=== PATIENT | female | born 1970 | race Caucasian/White ===

== ENCOUNTER 2020-02-29 06:13 | Day surgery (SDC) | payer OTHER, SELFPAY ==
[2020-02-29] VITALS (9 sets, daily range): BP systolic 131–152; BP diastolic 78–98; PULSE 73–87; RESP 16; TEMP 36.1–37.5; O2SAT 93–100; BMI 37.0
[2020-02-29 06:36] LABS: Bedside Glucose 87 mg/dL (70-110)
[2020-02-29] MEDS: Lactated Ringers 1,000 ML 100 ML IV ×2 (06:48→09:07)
[2020-02-29 06:58] LABS: Anion Gap 8 (5-15); BUN 11 mg/dL (7-18); BUN/Creat Ratio 13.4 RATIO (10-20); Calcium,Total 8.8 mg/dL (8.5-10.1); Chloride 103 mmol/L (98-107); Creatinine, Serum 0.82 mg/dL (0.55-1.02); EST Glomerular Filtration Rate 79 mL/min (>60); Est Glom Filt Rate - Afr Amer 95 mL/min (>60); Estimated Creatinine Clearance 78.54 ml/min; Glucose 88 mg/dL (74-106); Potassium 3.5 mmol/L (3.5-5.1); Sodium Level 139 mmol/L (136-145)
--- NOTE | 2020-02-29 07:27 | PCM.HP.STD ---
Problem List (1) Stress incontinence Status: Acute (2) Urethral hypermobility Status: Acute History of Present Illness Date of Admission: 02/29/20 Chief Complaint: incontinence The patient is a 49 year old F with significant stress urinary incontinence. She went through pelvic floor physical therapy with some improvement. She desired to then proceed with surgical intervention. She had urodynamics and cystoscopy in the office. Informed consent was obtained. We discussed risks of anesthesia, infection, bleeding, injury and of COVID-19. Past Medical History Allergies latex Allergy (Verified 02/29/20 06:27) Rash vancomycin Allergy (Verified 02/29/20 06:27) Hives nitrofurantoin [From Macrobid] Adverse Reaction (Verified 02/29/20 06:27) Upset Stomach Home Medications: Ambulatory Orders Medication Instructions Recorded Lisinopril [Zestril] 40 mg PO DAILY 02/22/20 RX: Metoprolol Succinate 50 mg PO DAILY 02/22/20 Sitagliptin Phos/Metformin HCl 1 tab PO BIDCM 02/22/20 [Janumet 50-1,000 MG Tablet] Smoking Status: Never smoker Tobacco Use: Non-smoker Review of Systems Constitutional: Denies: Anorexia, Chills, Fever Eyes: Denies: Vision Change HEENT: Denies: Visual Changes Cardiovascular: Denies: Chest Pain, Chest Pressure Respiratory: Denies: Cough, Shortness of Breath Gastrointestinal: Denies: Abdominal Pain, Nausea, Vomiting Genitourinary: Reports: Incontinence. Denies: Dysuria, Hematuria, Retention Gynecological: Denies: Sexual concerns Musculoskeletal: Denies: Muscle pain Skin: Denies: Wounds Neurological: Denies: Seizures VTE Information - Inpt Only VTE Present on Admission: Yes VTE Mechan Device Prophylaxis: SCD's VTE Pharm Prophylaxis ordered?: No Reason prophylaxis not ordered:: Treatment Not Indicated Patient Problems: Active and Suspected Problems Stress incontinence (Acute) Urethral hypermobility (Acute) - Physical Exam Vitals/I&O's: Vital Signs Temp Pulse Resp BP Pulse Ox 97 F L 73 16 144/84 H 100 02/29/20 06:28 02/29/20 06:28 02/29/20 06:28 02/29/20 06:28 02/29/20 06:28 Oxygen Delivery Method Room Air Weight: 104.3 kg Body Mass Index (BMI) 37.0 General: Alert, Oriented x3, Cooperative, No apparent distress HEENT: Atraumatic, Normocephalic Oral: Moist Mucosa Neck: Trachea Midline Lungs: Normal air movement Cardiovascular: Regular rate, Regular Rhythm Abdomen: Soft, Non Tender, Non-Distended Extremities: No clubbing, No cyanosis Skin: No rashes Musculoskeletal: No Muscle Wasting Neurological: Cranial nerves II-XII grossly intact, Neuro grossly intact Psych/Mental Status: Normal Affect, Alert and oriented to time, place, person, mood and affect Laboratory Results 02/29/20 06:24: Sodium 139, Potassium 3.5, Chloride 103, Carbon Dioxide 28.0, Anion Gap 8, BUN 11, Creatinine 0.82, Estim Creat Clear Calc 78.54, Est GFR (MDRD) Af Amer 95, Est GFR (MDRD) Non-Af 79, BUN/Creatinine Ratio 13.4, Glucose 88, Calcium 8.8 02/29/20 06:24: Hemoglobin A1c Pending 02/29/20 06:31: POC Glucose 87 Current Medications Cefazolin Sodium 2 gm/ Sodium (Chloride) 110 mls @ 150 mls/hr IV PREOP ONE Stop: 02/29/20 07:43 Lactated Ringer's () 1,000 mls @ 100 mls/hr IV .Q10H ARTUR Last Admin: 02/29/20 06:48 Dose: 100 mls/hr Documented by: Assessment/Plan All Active Problems Stress incontinence (Acute) Urethral hypermobility (Acute) midurethral sling and cystoscopy Procedure Criteria Procedure Type: Elective COVID Risk Discussion: The surgeon/proceduralist and patient have discussed in detail the risk of exposure to and/or potential harm posed by the COVID-19 virus with having a surgery/procedure at this time versus the risk of delaying the surgery/procedure. It is not possible to know either the risk of delaying the surgery or procedure or chance of getting an infection with perfect accuracy, but a joint decision was made between the patient and the surgeon/proceduralist to proceed at this time with the scheduled surgery/procedure as indicated on the consent form.
[2020-02-29] MEDS: Cefazolin 2 GM in 0.9% Normal Saline 100 ML IV (07:30)
--- NOTE | 2020-02-29 07:30 | OP.PCM_ITS ---
Problem List (1) Stress incontinence Status: Acute (2) Urethral hypermobility Status: Acute Report of Operation Date of Procedure: 02/29/20 Pre-Operative Diagnosis: stress incontinence, urethral hypermobility Post-Operative Diagnosis: same Surgery/Procedure Performed:: midurethral sling insertion, cystoscopy Type of Anesthesia:: General Estimated Blood Loss (mL): 25cc Description of Procedure: The patient is a 49-year-old female with stress urinary incontinence who has undergone work-up and conservative management and failed. She now presents for surgical intervention. Informed consent was obtained. Patient was taken to the operating room and placed on the operating room table. Anesthesia monitored the head, neck, airway, IV access and vital signs throughout the case. Once anesthesia was appropriately administered the patient was placed into the dorsal lithotomy position in Trendelenburg. She was prepped and draped in usual sterile fashion. A 16 [place] Rubio catheter was inserted and the bladder was drained. The mid urethra was identified isolated and the submucosa was injected with lidocaine for hemostatic control and hydrostatic dissection. A midline incision vertical approximately 2 cm in length was then made and sharp and blunt dissection was performed on either side of the urethra. Her periurethral tissues were very tough. Her pelvis was also somewhat larger than the trochars. At this time the Altis mid urethral sling was inserted on either side of the urethra into the obturator complexes using the trochars. Care was taken to avoid entry through the vaginal mucosa and the urethra. Once this was done on either side the sling was positioned against the urethra in a flat nature. The tensioning suture was cut. The incision was then closed with running interlocking 2-0 Vicryl. The Rubio catheter was removed and a cystourethroscopy was performed through the urethra. There is no entry into the urinary bladder or the urethra. The area of closure of the sling was identified in the area of the mid urethra. The bladder was left minimally full and the cystoscope was removed. The patient was cleaned and awakened and taken to the recovery room in good condition. There were no complications during the procedure. Grafts/Implants Used: Altis midurethral sling - Complications none - Admit VTE Documentation VTE Present on Admission: Yes VTE Mechan Device Prophylaxis: SCD's VTE Pharm Prophylaxis ordered?: No Reason prophylaxis not ordered:: Treatment Not Indicated
--- NOTE | 2020-02-29 07:34 | PCM.DC.URO ---
Discharge Diet: No Restrictions Discharge Activity: May not drive while taking narcotic pain medications., May Shower May resume sexual activity in: 4-6 weeks Additional Activity Instructions:: No lifting over 5 pounds, no strenuous activity, no exercise, no swimming, no tub bathing, no hot tubs, no sexual activity Call your doctor if your incision/area has: Continuous Slow Oozing, Sudden Increased Bleeding, Increased Pain/ Swelling, Foul Smelling Discharge Call your doctor if you observe: Fever of 101 or Higher, Inability to urinate, Inability to have a bowel movement, Uncontrolled pain Allergies/Adverse Reactions: Allergies latex Allergy (Verified 02/29/20 06:27) Rash vancomycin Allergy (Verified 02/29/20 06:27) Hives nitrofurantoin [From Macrobid] Adverse Reaction (Verified 02/29/20 06:27) Upset Stomach Medications to take at Discharge Lisinopril [Zestril] 40 mg PO DAILY 02/22/20 Metoprolol Succinate 50 mg PO DAILY 02/22/20 Sitagliptin Phos/Metformin HCl [Janumet 50-1,000 MG Tablet] 1 tab PO BIDCM 02/22/20 Cephalexin [Keflex] 500 mg PO Q12 3 Days #6 cap 02/29/20 Oxycodone HCl/Acetaminophen [Percocet 5/325] 2 tablet PO Q8H PRN PRN 7 Days #20 tablet 02/29/20 The following prescriptions were given: Cephalexin [Keflex] 500 mg PO Q12 3 Days #6 cap Transmission Status: Pending to [facility] Oxycodone HCl/Acetaminophen [Percocet 5/325] 2 tablet PO Q8H PRN PRN 7 Days #20 tablet PRN Reason: Pain Transmission Status: Sent to [facility] Orders to be completed after discharge: CORONAVIRUS 19, MARI SENDOUT Time Frame: 02/22/20, Facility: [facility], Location: Laboratory Hemoglobin A1c Time Frame: 02/29/20, Facility: [facility], Location: Laboratory Primary Care Physician: Adelso Carter MD [Primary Care Provider] - Test Results: Test results from this visit will be discussed in further detail at your follow-up appointment, if applicable. Please Follow Up With: Tara Rodgers MD When: call office for appt Proposed Discharge Date: 02/29/20
[2020-02-29 08:16] LABS: Hemoglobin A1c 5.8 % (3.8-5.6)
[2020-02-29 08:46] LABS: Bedside Glucose 98 mg/dL (70-110)
[2020-02-29] MEDS: Ketorolac 30 MG/ML Syringe IV (10:43)
== END 2020-02-29 12:43 | disposition home health service (06) ==
LOC: SDC 06:14 → AC 06:17
PROVIDERS: Anesthesiology; PCP Family Medicine; Referring Provider Urology; Visit Provider Urology
PROC: 0TJB8ZZ Inspection of Bladder, Via Natural or Artificial Opening Endoscopic (ICD-10-PCS; CPT 57288; principal; 2020-02-29 07:20)
DX: N39.3 Stress incontinence (female) (male) (principal); N36.41 Hypermobility of urethra; Z79.84 Long term (current) use of oral hypoglycemic drugs; Z88.1 Allergy status to other antibiotic agents; Z91.040 Latex allergy status; Z87.442 Personal history of urinary calculi; E11.9 Type 2 diabetes mellitus without complications; I10 Essential (primary) hypertension
CPT/HCPCS: 00860; 57288; 36415; 80048; 82962; 83036; 87635; 94799; J7120; J2405; U0003